=== PATIENT | male | born 1990 | race Caucasian/White ===

== ENCOUNTER 2021-05-21 06:30 | Day surgery (SDC) | payer OTHER, SELFPAY ==
[~2021-05-21] VITALS: Ht 167.6 cm; Wt 68.0 kg
[2021-05-21] MEDS ORDERED: ONDANSETRON HCL 4 MG/2 ML VIAL IVP ONE (09:24)
[2021-05-21] MEDS ORDERED: SEVOFLURANE 15 MIN GAS INH ONE (09:24)
[2021-05-21] MEDS ORDERED: PROPOFOL 200MG/ 20ML VIAL (DIPRIVAN) IV ONE (09:24)
[2021-05-21] MEDS ORDERED: NS IRRIG SOLN 1000 ML IR ONE (09:24)
[2021-05-21] MEDS ORDERED: MIDAZOLAM HCL 5 MG/5 ML VIAL IVP ONE (09:24)
[2021-05-21] MEDS ORDERED: SUCCINYLCHOLINE CHLORIDE 20 MG/ML(QUELICIN) IVP ONE (09:24)
[2021-05-21] MEDS ORDERED: LR 1,000 ML IV.SOLN IV ONE (09:24)
[2021-05-21] MEDS ORDERED: fentaNYL CITRATE 250 MCG/5 ML AMP IV ONE (09:24)
[2021-05-21] MEDS ORDERED: BUPIVACAINE /EPINEPHRINE/PF 0.25% 30 ML VIAL INJ ONE (09:24)
[2021-05-21] MEDS ORDERED: DEXAMETHASONE SOD PHOSPHATE 4 MG/ML VIAL IVP ONE (09:24)
[2021-05-21] MEDS ORDERED: DEXTROSE 50% JECT 50 ML DISP.SYRIN IVP ONE (09:24)
[2021-05-21] MEDS ORDERED: WATER FOR IRRIGATION,STERILE 1,000 ML IRRIG.SOLN IR ONE (09:24)
[2021-05-21] MEDS ORDERED: ePHEDrine sulfate 50 MG/ML VIAL IVP ONE (09:24)
[2021-05-21] MEDS ORDERED: HYDROmorphone 2 MG/ML VIAL IVP PRN (10:45)
[2021-05-21] MEDS ORDERED: HYDROmorphone 1 MG/ML INJ. CARTRIDGE IVP PRN ×2 (10:45)
[2021-05-21] MEDS ORDERED: ONDANSETRON HCL 4 MG/2 ML VIAL IVP PRN ×2 (10:45→11:15)
[2021-05-21] MEDS ORDERED: HYDROmorphone 2 MG/ML VIAL ONE (11:06)
[2021-05-21] MEDS ORDERED: HYDROcodone/ACETAMIN 5-325 MG TAB (NORCO/ VICODIN) PO PRN ×2 (11:15→11:30)
[2021-05-21] MEDS ORDERED: ONDANSETRON 4 MG ODT TAB PO PRN (11:15)
[2021-05-21 11:44] VITALS: BP_SYST 131
== END 2021-05-21 12:45 | disposition home or self-care (01) ==
LOC: SDS 06:30 → SMU 06:31 → SDS 12:45
PROVIDERS: ATTEND Otolaryngology
DX: J35.01 Chronic tonsillitis (principal); Z20.822 Contact with and (suspected) exposure to COVID-19; Z79.899 Other long term (current) drug therapy
CPT/HCPCS: 42826; 88304; J0330; J1100; J1170; J2250; J2405; J2704; J3010; J3490; J7120; U0003